=== PATIENT | female | born 1960 | race Caucasian/White ===

== ENCOUNTER 2018-11-27 05:34 | Day surgery (SDC) | payer OTHER ==
[2018-11-27] VITALS (15 sets, daily range): BP systolic 107–140; BP diastolic 51–82; PULSE 75–88; RESP 13–18; Ht 157.5 cm; Wt 81.1 kg
[~2018-11-27] VITALS: Ht 157.5 cm; Wt 81.1 kg
[~2018-11-27 05:34] MED LIST: ASPI-535 PO; NORVASC PO; TRAN4TAB2
[2018-11-27] MEDS ORDERED: SOD CHLORIDE 0.9% 1,000 ML IV SCH (06:30)
[2018-11-27] MEDS ORDERED: CEFAZOLIN 2 GM/50 ML (PMX) 50 ML IVPB SCH (06:30)
[2018-11-27] MEDS ORDERED: METF-849 PO (06:35)
[2018-11-27] MEDS ORDERED: AMLO-147 PO (06:35)
[2018-11-27] MEDS ORDERED: [UNRECOGNIZED DRUG - CODE] PO (06:35)
[2018-11-27] MEDS ORDERED: METF500T24 PO (06:35)
[2018-11-27] MEDS ORDERED: CALC1TAB93 PO (06:40)
[2018-11-27] MEDS ORDERED: SIMV20TA2 PO (06:40)
--- NOTE | 2018-11-27 07:33 | PREAC ---
Date/Time of Note Date/Time of Note DATE: 11/27/18 TIME: 07:31 Anesthesia Eval and Record Evaluation Time Pre-Procedure Interview DATE: 11/27/18 TIME: 07:31 Age 58 Sex female NPO: 8 hrs Preoperative diagnosis right shoulder mass Planned procedure excision right shoulder mass Past Medical History Past Medical History: Includes Cardio: HTN, Dyslipidemia Endo: Diabetes GI: Obesity Surgery & Anesthesia Issues No known issue Meds Anticoagulation: No Beta Sunil within 24 hr: No Reason Beta Sunil not given: Pt. not on B-Sunil Reported Medications Calcium Carbonate/Vitamin D3 (OYSTER SHELL 500 MG + VIT D TB) 1 Each Tablet, 1 EACH PO DAILY, TAB 11/27/18 Simvastatin (Simvastatin) 20 Mg Tablet, 20 MG PO QHS, #30 TAB 11/27/18 Metformin* (Glucophage*) 500 Mg Tab, 500 MG PO WITH MEALS, #90 TAB 11/27/18 Amlodipine Besylate* (Amlodipine Besylate*) 10 Mg Tablet, 10 MG PO DAILY, #30 TAB 11/27/18 Trandolapril* (Mavik*) 4 Mg Tablet, DAILY 01/23/12 Discontinued Reported Medications Metformin Hcl* (Metformin Hcl*) 500 Mg Tablet, 500 MG PO AC DINNER, #30 TAB 11/27/18 Aspirin Ec (Aspir 81) 81 Mg Tablet.dr, 81 MG PO DAILY [facility] No Conflict Check, PO DAILY 01/13/14 Current Medications Cefazolin Sodium/ Dextrose 50 ml @ 100 mls/hr PREOP IVPB ; Start 11/27/18 at 06:30; Stop 11/27/18 at 18:00 Sodium Chloride 1,000 ml @ 75 mls/hr [id number] IV Last administered on 11/27/18at 06:36; Admin Dose 75 MLS/HR; Start 11/27/18 at 06:30; Stop 11/27/18 at 18:00 Meds reviewed: Yes Allergies Coded Allergies: No Known Drug Allergy (Verified Allergy, Mild, 11/27/18) Allergies Reviewed: Yes Labs/Studies Labs Reviewed: Reviewed by anesthesiologist test: N/A Studies: ECG Pre-procedure Exam Last vitals Vital Signs Date Temp Pulse Resp B/P (MAP) Pulse Ox O2 O2 Flow FiO2 Time Delivery Rate 11/27/18 97.5 75 16 140/75 92 Room Air 06:27 (96) Airway: Adequate mouth opening, Adequate thyromental dist Mallampati: Mallampati II Teeth: Normal Lung: Normal Heart: Normal ASA Physical Status ASA physical status: 2 Emergency: None Planned Pain Management Parenteral pain med, Local by surgeon Pre-operative Attestations Prior to commencing anesthesia and surgery, the patient was re-evaluated, there was verification of: *The patient's identity *The results of appropriate recent lab work and preoperative vital signs *The above evaluation not changing prior to induction *Anesthetic plan, risk benefits, alternative and complications discussed with patient/family; questions answered; patient/family understands, accepts and wishes to proceed. ROBLES FITCH Nov 27, 2018 07:33
[2018-11-27] MEDS ORDERED: METOCLOPRAMIDE 10 MG INJ ONE (07:37)
[2018-11-27] MEDS ORDERED: FENTAnyl 50 MCG/ML VIAL ONE (07:37)
[2018-11-27] MEDS ORDERED: LIDOCAINE 2% (SDV) 5 ML INJ ONE (07:37)
[2018-11-27] MEDS ORDERED: BUPIVACAINE 0.25% (MPF) 30 ML INJ ONE (07:37)
[2018-11-27] MEDS ORDERED: PROPOFOL 20 ML ONE (07:37)
[2018-11-27] MEDS ORDERED: ONDANSETRON 4 MG INJ ONE (07:37)
[2018-11-27] MEDS ORDERED: MEPERIDINE 25 MG INJ IV PRN (08:00)
[2018-11-27] MEDS ORDERED: OXYCODONE/ACETAMINOPHEN (5/325) TAB PO PRN ×2 (08:00)
[2018-11-27] MEDS ORDERED: ONDANSETRON 4 MG INJ IV PRN (08:00)
[2018-11-27] MEDS ORDERED: FENTAnyl 50 MCG/ML VIAL IV PRN ×3 (08:00)
--- NOTE | 2018-11-27 08:45 | OPR ---
Date/Time of Note Date/Time of Note DATE: 11/27/18 TIME: 08:42 Operative Report Procedure Date: Nov 27, 2018 Preoperative Diagnosis right shoulder mass Postoperative Diagnosis same Operation/Procedure Performed 1. excision of right shoulder mass 5 cm mass 5 cm incision 2. localized adjacent tissue transfer with the use of skin flaps 10 sq cm defect of right shoulder 3. therapeutic injection of subcutaneous local anesthesia Surgeon see signature line Pushcart Peddler none Anesthesia Type: general Estimated Blood Loss: 0 - 10 ml's Transfusion none Specimen right shoulder mass Grafts/Implants none Complications none Pt Condition Post Procedure: stable Indications This is a 50-year-old female with right shoulder mass. She required surgical excision of her shoulder mass. Risks alternatives benefits and personally discussed the patient. Patient expressed understanding and consents to the operation. Procedure Description Patient is taken to the OR and prepped and draped in usual sterile fashion. Surgical time was performed. IV antibiotics given. Elliptical incision was made over the right shoulder mass. Cautery was carried down to the mass and the mass was circumferentially excised. Good hemostasis status. Due to tissue defect localized adjacent to his transfer with use of skin flaps performed. Multilayer closed with interrupted 3-0 Vicryl and skin jesus. Therapeutic contains local anesthesia was injected at the incision site. Dry dressings were applied. Patrick SAHU Nov 27, 2018 08:45
[2018-11-27] MEDS ORDERED: HYDROCODONE/APAP (5/325) TAB PO ONE (09:00)
--- NOTE | 2018-11-27 13:02 | PAC ---
Date/Time of Note Date/Time of Note DATE: 11/27/18 TIME: 13:02 Post-Anesthesia Notes Post-Anesthesia Note Last documented vital signs Vital Signs Date Temp Pulse Resp B/P (MAP) Pulse Ox O2 O2 Flow FiO2 Time Delivery Rate 11/27/18 97.6 80 18 130/62 96 09:50 (84) 11/27/18 Mask 8.0 08:59 Activity: WNL Respiratory function: WNL Cardiovascular function: WNL Mental status: Baseline Pain reasonably controlled: Yes Hydration appropriate: Yes Nausea/Vomiting absent: Yes ROBLES FITCH Nov 27, 2018 13:02
== END 2018-11-27 10:40 | disposition home or self-care (01) ==
LOC: SDS 05:34
PROVIDERS: ATTEND Surgery
DX: D17.21 Benign lipomatous neoplasm of skin and subcutaneous tissue of right arm (principal); E11.9 Type 2 diabetes mellitus without complications; I10 Essential (primary) hypertension; E78.5 Hyperlipidemia, unspecified; Z79.84 Long term (current) use of oral hypoglycemic drugs
CPT/HCPCS: 14000; 82962; 88307; J0690; J2405; J2765; J3010; Z7512; Z7610